=== PATIENT | male | born 1955 | race Caucasian/White ===

== ENCOUNTER 2017-09-19 20:22 | Emergency (ER) | payer OTHER ==
[~2017-09-19] VITALS: Ht 180.3 cm; Wt 86.2 kg
[2017-09-19] MEDS ORDERED: TETANUS/DIPHTHERIA TOX ADULT 0.5 ML SYR IM ONE (21:00)
[2017-09-19] MEDS ORDERED: HYDROCODONE/APAP 5MG-325MG TAB PO ONE (21:15)
[2017-09-19] MEDS ORDERED: ACETAMINOPHEN 325 MG TAB ONE (21:39)
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
[2017-09-19] MEDS ORDERED: ACETAMINOPHEN 325 MG TAB PO STA (22:28)
[2017-09-19 22:29] VITALS: BP 116/74
== END 2017-09-19 22:31 | disposition home or self-care (01) ==
LOC: ER 20:22
DX: M54.2 Cervicalgia (principal); S16.1XXA Strain of muscle, fascia and tendon at neck level, initial encounter; W18.09XA Striking against other object with subsequent fall, initial encounter; Y93.K1 Activity, walking an animal; Y92.008 Other place in unspecified non-institutional (private) residence as the place of occurrence of the external cause
CPT/HCPCS: 70450; 72125; 99284

== ENCOUNTER → 2017-11-28 | Emergency (ER) | payer OTHER | END | disposition home or self-care (01) | LOC: ER 10:41 | DX: S61.512A Laceration without foreign body of left wrist, initial encounter (principal); W26.8XXA Contact with other sharp object(s), not elsewhere classified, initial encounter; Y92.008 Other place in unspecified non-institutional (private) residence as the place of occurrence of the external cause; F17.210 Nicotine dependence, cigarettes, uncomplicated ==

== ENCOUNTER → 2018-06-13 | Day surgery (SDC) | payer OTHER ==
--- NOTE | 2018-06-07 17:20 | Diagnostic Imaging Report ---
EXAMINATION: CHEST 2 VIEWS INDICATION: Preop. Hernia. ^PRE OP ^[id number] ^1700 ^ANESTH PROT COMPARISON: None FINDINGS: TUBES and LINES: None. LUNGS: Lungs are well inflated. Lungs are clear. There is no evidence of pneumonia or pulmonary edema. PLEURA: No pleural effusion or pneumothorax. HEART AND MEDIASTINUM: The cardiomediastinal silhouette is unremarkable. BONES AND SOFT TISSUES: No acute osseous lesion. Soft tissues are unremarkable. UPPER ABDOMEN: No free air under the diaphragm. IMPRESSION: No acute thoracic abnormality. Signed by: Dr. Juan Lucero M.D. on 06/07/2018 5:17 PM
[2018-06-07 17:21] LABS: BASOPHILS # (AUTO) 0.1 (0.0-0.1); BASOPHILS % 1.1 % (0.0-1.0); EOSINOPHILS # (AUTO) 0.2 (0.0-0.4); HEMOGLOBIN 14.8 g/dL (14.0-18.0); LYMPHOCYTES # (AUTO) 2.8 (1.0-3.2); LYMPHOCYTES % 40.4 % (18.0-39.1); MEAN CORPUSCULAR HEMOGLOBIN 29.1 pg (28-32); MEAN CORPUSCULAR HGB CONC 33.6 g/dL (31-35); MEAN CORPUSCULAR VOLUME 86.6 fL (81-99); MONOCYTES # (AUTO) 0.5 (0.2-0.8); MONOCYTES % 6.8 % (4.4-11.3); NEUTROPHILS # (AUTO) 3.4 (2.1-6.9); NEUTROPHILS % 48.4 % (38.7-80.0); PLATELET COUNT 242 x10e3/uL (140-360); RED BLOOD COUNT 5.08 x10e6/uL (4.3-5.7); RED CELL DISTRIBUTION WIDTH 13.6 % (11.7-14.4)
[2018-06-07 17:33] LABS: ANION GAP 14.7 mmol/L (8-16); BLOOD UREA NITROGEN 19 mg/dL (7-26); BUN/CREATININE RATIO 22 (6-25); CALCIUM 9.5 mg/dL (8.4-10.2); CARBON DIOXIDE 27 mmol/L (22-29); CHLORIDE 102 mmol/L (98-107); CREATININE, SERUM 0.86 mg/dL (0.72-1.25); EST GLOMERULAR FILTRATION RATE > 60 ML/MIN (60-); GLUCOSE 89 mg/dL (74-118); POTASSIUM 4.7 mmol/L (3.5-5.1); SODIUM 139 mmol/L (136-145)
[~2018-06-13] MED LIST: BUPIVACAINE 0.5%/EPI 30 ML SDV INJ ONE; CEFAZOLIN SOD 1 GM VIAL ONE; CHANTIX1 EACH PO; DEXAMETHASONE SOD PHOS INJ 4 MG/ML VIAL ONE; EPHEDRINE SULFATE INJ 50 MG/10 ML SYR ONE; FENTANYL CITRATE/PF 100MCG/2 ML INJ ONE; GLYCOPYRROLATE INJ 1MG/ 5 ML SYR ONE; HYDROCODONE/APAP 7.5MG-325MG 1 EA TAB ONE; KETOROLAC TROMETHAMINE 30 MG/ML VIAL ONE; LIDOCAINE HCL 2% LOCAL INJ 5 ML SDV VIAL INJ ONE; MIDAZOLAM HCL 2 MG/2 ML VIAL ONE; NEOSTIGMINE 5 MG/5ML SYR ONE; ONDANSETRON HCL INJ 2MG/ML 2ML 2 MG/ML VIAL ONE; PROPOFOL IV EMULSION 10 MG/ML 20 ML VIAL ONE; ROCURONIUM BROMIDE 10 MG/ML 5ML VIAL ONE; SEVOFLURANE INHAL SOLN 250 ML PEN BTL ONE
--- NOTE | 2018-06-13 07:15 | NUR ---
SPIRITUAL CARE - Pre-Surgery Assessment: Pt in bed. Pt reported supportive attention from family and friends. Intervention: I provided pastoral presence, hospitality, and sympathetic listening. I acquainted pt with availability of hedis manager while hospitalized. Outcome: Pt expressed appreciation for visit. No need for follow up indicated at this time. [facility] Spiritual Care Department O: [phone] Pager: [phone] ([phone] number calling from)
[2018-06-13 11:00] VITALS: BP 121/77
--- NOTE | 2018-06-13 12:05 | Operative Report ---
DATE OF PROCEDURE: June 13, 2018 PREOPERATIVE DIAGNOSIS: Incarcerated ventral hernia. POSTOPERATIVE DIAGNOSIS: Incarcerated ventral hernia. OPERATION PERFORMED: Repair of incarcerated ventral hernia with mesh. ANESTHESIA: General. COMPLICATIONS: None. ESTIMATED BLOOD LOSS: Minimal. DESCRIPTION OF PROCEDURE: With the patient lying in bed in the supine position, under good general endotracheal anesthesia, the abdomen was prepped with Betadine solution and draped in the usual manner. A transverse mid-abdominal incision was made. It was carried down through the subcutaneous tissue. Immediately, the hernia sac was encountered. The umbilicus was then detached from the hernia sac. There were numerous sutures of Prolene present, all of which were removed. The hernia sac was then cleared with normal fascia all the way around. The hernia sac was then detached from the fascial attachments and then reduced back to the intra-abdominal cavity. After this was done, the preperitoneal space was then entered, and a pocket was created without any difficulty. Hemostasis was ascertained. A medium-size Ventralex patch was then placed in the preperitoneal space and deployed without any problems. The defect was then closed transversely using interrupted sutures of #0 Ethibond, anchoring the mesh on the way out. After this was done, the whole fascia was infiltrated with 1/4 percent Marcaine. The umbilicus was tacked back down to the midline fascia with 3-0 Vicryl. The subcutaneous tissue was approximated with 3-0 Vicryl, and the skin was closed with interrupted vertical mattress sutures of 3-0 silk. A dressing was applied. The sponge, lap and needle count was correct. Patient tolerated the procedure well and returned to the recovery room in stable condition. Job#: [id number]
== END | disposition home or self-care (01) ==
LOC: OR 05:36
PROVIDERS: ATTEND Surgery
DX: K43.6 Other and unspecified ventral hernia with obstruction, without gangrene (principal); K42.9 Umbilical hernia without obstruction or gangrene; E78.5 Hyperlipidemia, unspecified; I10 Essential (primary) hypertension; M46.99 Unspecified inflammatory spondylopathy, multiple sites in spine; F17.210 Nicotine dependence, cigarettes, uncomplicated; Z01.810 Encounter for preprocedural cardiovascular examination; Z01.812 Encounter for preprocedural laboratory examination; Z01.818 Encounter for other preprocedural examination
CPT/HCPCS: 36415; 49561; 49568; 71046; 80048; 85025; 93005; J0690; J1100; J1885; J2001; J2250; J2405; J2704; J3490

== ENCOUNTER 2019-01-07 20:13 | Emergency (ER) | payer OTHER ==
[~2019-01-07] VITALS: Ht 180.3 cm; Wt 86.2 kg
[~2019-01-07 20:13] MED LIST changes: -BUPIVACAINE 0.5%/EPI 30 ML SDV INJ ONE; -CEFAZOLIN SOD 1 GM VIAL ONE; -DEXAMETHASONE SOD PHOS INJ 4 MG/ML VIAL ONE; -EPHEDRINE SULFATE INJ 50 MG/10 ML SYR ONE; -FENTANYL CITRATE/PF 100MCG/2 ML INJ ONE; -GLYCOPYRROLATE INJ 1MG/ 5 ML SYR ONE; -HYDROCODONE/APAP 7.5MG-325MG 1 EA TAB ONE; -KETOROLAC TROMETHAMINE 30 MG/ML VIAL ONE; -LIDOCAINE HCL 2% LOCAL INJ 5 ML SDV VIAL INJ ONE; -MIDAZOLAM HCL 2 MG/2 ML VIAL ONE; -NEOSTIGMINE 5 MG/5ML SYR ONE; -ONDANSETRON HCL INJ 2MG/ML 2ML 2 MG/ML VIAL ONE; -PROPOFOL IV EMULSION 10 MG/ML 20 ML VIAL ONE; -ROCURONIUM BROMIDE 10 MG/ML 5ML VIAL ONE; -SEVOFLURANE INHAL SOLN 250 ML PEN BTL ONE
[2019-01-07] MEDS ORDERED: TETANUS/DIPHTHERIA TOX ADULT 0.5 ML SYR IM ONE (20:30)
[2019-01-07] MEDS ORDERED: TETANUS/DIPHTHERIA TOX ADULT 0.5 ML SYR ONE (20:46)
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
[2019-01-07] MEDS ORDERED: NEOMYCIN/POLYMYX/BACITR OINT 0.9 GM PKT ONE (22:14)
[2019-01-07] MEDS ORDERED: NEOMYCIN/POLYMYX/BACITR OINT 0.9 GM PKT TOP ONE (22:15)
--- NOTE | 2019-01-07 22:27 | NUR ---
PT PLACED IN R ARM SLING, ABRASIONS CLEANED AND DRESSED.
--- NOTE | 2019-01-07 22:28 | NUR ---
PT REQUESTING MEDICATION FOR PAIN, DR RINCON NOTIFIED
[2019-01-07] MEDS ORDERED: MOTRIN200 MG PO (22:54)
[2019-01-07] MEDS ORDERED: ROBAXIN-750750 MG PO (22:54)
[2019-01-07] MEDS ORDERED: LIDOCAINE 5% PATCH TP SCH (23:00)
[2019-01-07] MEDS ORDERED: KETOROLAC TROMETHAMINE 60 MG/2 ML VIAL IM ONE (23:00)
[2019-01-07 23:01] VITALS: BP 138/68
== END 2019-01-07 23:18 | disposition home or self-care (01) ==
LOC: ER 20:13
DX: S01.01XA Laceration without foreign body of scalp, initial encounter (principal); S42.034A Nondisplaced fracture of lateral end of right clavicle, initial encounter for closed fracture; S16.1XXA Strain of muscle, fascia and tendon at neck level, initial encounter; S40.211A Abrasion of right shoulder, initial encounter; S50.311A Abrasion of right elbow, initial encounter; S50.811A Abrasion of right forearm, initial encounter; V23.4XXA Motorcycle driver injured in collision with car, pick-up truck or van in traffic accident, initial encounter; Y92.488 Other paved roadways as the place of occurrence of the external cause
CPT/HCPCS: 70450; 71045; 72125; 72170; 73030; 73090; 90471; 90714; 99283; J1885

== ENCOUNTER → 2019-07-10 | Outpatient (CLI) | payer OTHER ==
[~2019-07-10] MED LIST changes: +MOTRIN200 MG PO; +ROBAXIN-750750 MG PO
--- NOTE | 2019-07-10 17:09 | Diagnostic Imaging Report ---
EXAM: CT Chest WITHOUT intravenous contrast 07/10/2019 5:30 PM INDICATION: Lung cancer screening COMPARISON: None TECHNIQUE: Chest was scanned utilizing a multidetector helical scanner from the lung apex through the level of the adrenal glands without administration of IV contrast. Coronal and sagittal reformations were obtained. Low-dose screening protocol was performed. IV CONTRAST: None RADIATION DOSE: Total DLP: 256 mGy*cm. Dose modulation, iterative reconstruction, and/or weight based adjustment of the mA/kV was utilized to reduce the radiation dose to as low as reasonably achievable. COMPLICATIONS: None FINDINGS: LINES/ TUBES: None. LUNGS AND AIRWAYS: The central airways are patent. Bilateral left greater than right upper lobe predominant centrilobular and paraseptal emphysema. Mild bilateral lower lobe dependent subsegmental atelectasis PLEURA: The pleural spaces are clear. HEART AND MEDIASTINUM: The thyroid gland is normal. No mediastinal, hilar or axillary lymphadenopathy. The heart is normal in size.. Diffuse atherosclerotic calcifications of the coronary arteries. Scattered atherosclerotic calcifications of the thoracic aorta. No pericardial effusion. UPPER ABDOMEN: No acute findings. BONES: Chronic deformity of the right distal clavicle. No acute osseous injury. SOFT TISSUES: Unremarkable. IMPRESSION: No focal pneumonia or pulmonary edema. Bilateral left greater than right upper lobe predominant centrilobular and paraseptal emphysema. No suspicious pulmonary nodule. Atherosclerotic arterial calcifications including of the coronary arteries. Signed by: Antonio Messina MD on 07/10/2019 5:06 PM
== END ==
LOC: CT 16:08
PROVIDERS: ATTEND Family Medicine
DX: Z12.2 Encounter for screening for malignant neoplasm of respiratory organs (principal)
CPT/HCPCS: 71250

== ENCOUNTER → 2023-08-13 | Day surgery (SDC) | payer OTHER ==
[~2023-08-13] MED LIST changes: +FENTANYL CITRATE/PF 100MCG/2 ML INJ ONE; +LIDOCAINE HCL 2% LOCAL INJ 5 ML SDV VIAL INJ ONE; +MIDAZOLAM HCL 2 MG/2 ML VIAL ONE; +OMEPRAZOLE40 MG PO; +PROPOFOL IV EMULSION 10 MG/ML 20 ML VIAL ONE
[2023-08-13 10:57] LABS: BASOPHILS # (AUTO) 0.1 (0.0-0.1); BASOPHILS % 1.1 % (0.0-1.0); EOSINOPHILS # (AUTO) 0.1 (0.0-0.4); EOSINOPHILS % 1.5 % (0.0-6.0); HEMATOCRIT 48.3 % (38.2-49.6); HEMOGLOBIN 16.9 g/dL (14.0-18.0); LYMPHOCYTES # (AUTO) 1.5 (1.0-3.2); LYMPHOCYTES % 20.8 % (18.0-39.1); MEAN CORPUSCULAR HEMOGLOBIN 29.8 pg (28-32); MONOCYTES # (AUTO) 0.4 (0.2-0.8); MONOCYTES % 5.7 % (4.4-11.3); NEUTROPHILS # (AUTO) 5.2 (2.1-6.9); NEUTROPHILS % 70.5 % (38.7-80.0); PLATELET COUNT 247 x10e3/uL (140-360); RED BLOOD COUNT 5.68 x10e6/uL (4.3-5.7); RED CELL DISTRIBUTION WIDTH 14.1 % (11.7-14.4)
[2023-08-13] MEDS: LACTATED RINGER'S 1,000 ML ONE (11:21)
[2023-08-13 13:26] VITALS: TEMP 97
[2023-08-13 14:15] VITALS: BP 122/64; PULSE 65; RESP 16; O2SAT 98
== END | disposition home or self-care (01) ==
LOC: OR 09:27
PROVIDERS: ATTEND Internal Medicine Gastroenterology
DX: K22.70 Barrett's esophagus without dysplasia (principal); D12.4 Benign neoplasm of descending colon; K62.1 Rectal polyp; K31.7 Polyp of stomach and duodenum; K29.70 Gastritis, unspecified, without bleeding; K44.9 Diaphragmatic hernia without obstruction or gangrene; K64.8 Other hemorrhoids; R03.0 Elevated blood-pressure reading, without diagnosis of hypertension; F17.200 Nicotine dependence, unspecified, uncomplicated; Z79.899 Other long term (current) drug therapy; Z80.0 Family history of malignant neoplasm of digestive organs
CPT/HCPCS: 36415; 43239; 45384; 85025; 93005; J2001; J2250; J2704; J3010; J7121

== ENCOUNTER → 2023-11-26 | Outpatient (REF) | payer OTHER ==
[~2023-11-26] MED LIST changes: -FENTANYL CITRATE/PF 100MCG/2 ML INJ ONE; +GADOBENATE DIMEGLUMINE 1 ML IV ONE; +IOPAMIDOL 200 MG/ML 20 ML VIAL IT ONE; +IOPAMIDOL 300 MG/ML 15ML VIAL IT ONE; +LIDOCAINE HCL 1% LOCAL INJ 20 ML VIAL ONE; -LIDOCAINE HCL 2% LOCAL INJ 5 ML SDV VIAL INJ ONE; -MIDAZOLAM HCL 2 MG/2 ML VIAL ONE; -PROPOFOL IV EMULSION 10 MG/ML 20 ML VIAL ONE
== END ==
LOC: DX 11:21
PROVIDERS: ATTEND Orthopaedic Surgery
DX: M75.42 Impingement syndrome of left shoulder (principal); S43.422A Sprain of left rotator cuff capsule, initial encounter
CPT/HCPCS: 23350; 73222; A9577; J2001; Q9967 ×2

== ENCOUNTER → 2024-05-26 | Outpatient (REF) | payer OTHER ==
[~2024-05-26] MED LIST changes: -GADOBENATE DIMEGLUMINE 1 ML IV ONE; -IOPAMIDOL 200 MG/ML 20 ML VIAL IT ONE; -IOPAMIDOL 300 MG/ML 15ML VIAL IT ONE; -LIDOCAINE HCL 1% LOCAL INJ 20 ML VIAL ONE
== END ==
LOC: MRI 10:54
PROVIDERS: ATTEND Family Medicine
DX: M25.552 Pain in left hip (principal); M16.12 Unilateral primary osteoarthritis, left hip; M24.152 Other articular cartilage disorders, left hip